=== PATIENT | female | born 1990 | race African-American/Black ===

== ENCOUNTER 2023-12-05 20:33 | Emergency (ER) | payer BC ==
[2023-12-05 20:38] VITALS: TEMP 98.3; BMI 21.2
[2023-12-05] MEDS ORDERED: ANAPHYLAXIS KIT ONE (20:41)
[2023-12-05] MEDS: FAMOTIDINE 20 MG/50 ML IVPB 20 MG/50 ML MG IVPB ONE (21:15)
[2023-12-05] MEDS: SODIUM CHLORIDE 0.9% 500 ML INFUS.BAG IV ONE (21:15)
[2023-12-05 22:07] VITALS: BP 129/96; PULSE 68; RESP 16
== END 2023-12-05 22:24 | disposition home or self-care (01) ==
LOC: JER 20:33
PROC: 3E033GC Introduction of Other Therapeutic Substance into Peripheral Vein, Percutaneous Approach (ICD-10-PCS; principal; 2023-12-05)
PROC: 3E033GC Introduction of Other Therapeutic Substance into Peripheral Vein, Percutaneous Approach (ICD-10-PCS; 2023-12-05)
DX: T78.1XXA Other adverse food reactions, not elsewhere classified, initial encounter (principal); R20.2 Paresthesia of skin
CPT/HCPCS: 99284-25